=== PATIENT | female | born 2000 | race Caucasian/White ===

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

== ENCOUNTER 2022-02-12 11:59 | Emergency (ER) | payer OTHER ==
[~2022-02-12 11:59] MED LIST: ONDA4TAB11 PO
== END 2022-02-12 12:40 | disposition left against medical advice (07) ==
LOC: EDUNIT# 11:59 → ER 12:02
DX: R10.9 Unspecified abdominal pain (principal); R11.10 Vomiting, unspecified

== ENCOUNTER 2023-01-22 18:53 | Observation (INO) | payer OTHER ==
[~2023-01-22] VITALS: Ht 157.5 cm; Wt 42.7 kg
[2023-01-22 20:30] VITALS: BP 114/65
[2023-01-22] MEDS ORDERED: ONDANSETRON INJECTION 4 MG/2 ML (SDV) IVP PRN (20:30)
[2023-01-22] MEDS ORDERED: PROMETHAZINE INJ 25 MG/ML VIAL IVP PRN (20:30)
[2023-01-22] MEDS ORDERED: THIAMINE INJECTION 100 MG in NS (IVPB) 50 ML 50 ML IV ONE (21:15)
[2023-01-22 21:40] LABS: HEMATOCRIT 36 % (35-52); HEMOGLOBIN 12.3 g/dL (11.5-16.0); MEAN CORPUSCULAR HEMOGLOBIN 32 pg (25-34); MEAN CORPUSCULAR HGB CONC 35 g/dL (32-36); MEAN CORPUSCULAR VOLUME 92 fL (80-99); MEAN PLATELET VOLUME 8.9 fL (9.0-12.2); PLATELET COUNT 357 10^3/uL (130-400); WHITE BLOOD COUNT 16.2 10^3/uL (4.3-11.0)
[2023-01-22 22:02] LABS: ALBUMIN 4.4 GM/DL (3.2-4.5); CALCIUM 9.7 MG/DL (8.5-10.1); CREATININE SERUM 0.64 MG/DL (0.60-1.30); POTASSIUM 3.6 MMOL/L (3.6-5.0); TOTAL PROTEIN 6.9 GM/DL (6.4-8.2)
[2023-01-22] MEDS: D5 1/2NS + KCL 20 MEQ/L 1000ML 1,000 ML IV SCH (22:16)
[2023-01-22 22:22] LABS: TSH (THYROID ANALYZER) 0.9 UIU/ML (0.35-4.94)
[2023-01-22] MEDS ORDERED: LURA20TA PO (22:40)
[2023-01-22] MEDS ORDERED: SERT25TA PO (22:40)
[2023-01-22] MEDS ORDERED: PNV-9 PO (22:40)
[2023-01-23 00:58] VITALS: BP 99/54
[2023-01-23 04:23] VITALS: BP 109/60
[2023-01-23] MEDS: D5 1/2NS + KCL 20 MEQ/L 1000ML 1,000 ML IV SCH (04:23)
[2023-01-23 05:14] LABS: CLARITY,URINE SLIGHTLY CLOUDY; COLOR,URINE AMBER; GLUCOSE, URINE (UA) NEGATIVE (NEGATIVE); KETONES,URINE 3+ (NEGATIVE); PROTEIN,URINE 2+ (NEGATIVE)
[2023-01-23 05:15] LABS: BACTERIA,URINE LARGE /HPF; BILIRUBIN,URINE 1+ (NEGATIVE); LEUKOCYTE ESTERASE ,URINE NEGATIVE (NEGATIVE); NITRITE,URINE NEGATIVE (NEGATIVE); RBC,URINE 0-2 /HPF; WBC,URINE 0-2 /HPF
[2023-01-23 08:46] VITALS: BP 94/50
--- NOTE | 2023-01-23 10:38 | Short Stay Summary ---
HPI History of Present Illness: Keri Zambrano is a 22yo at 11wga by LMP and 1st trimesters US who was admitted for vomiting, inability to tolerate PO, and 4 pound weight loss. She reports 2 days of acute nausea, vomiting, and abdominal pain. No fevers. Had mild nausea prior, but not this bad. No known sick contacts, no different food or changes recently. No cramping, contractions, or vaginal bleeding. No diarrhea, dysuria, urgency or frequency. Blood work and urine testing negative for significant abnormality or infection. She received IV fluids and banana bag overnight and 1 dose of antiemetic with significant improvement of symptoms. She continued to improve and was able to tolerate oral food and fluids. She was discharged home with recommendation for bland diet, po zofran. Source: patient, RN notes reviewed Exam Limitations: no limitations Date seen by provider: Jan 23, 2023 Time Seen by Provider: 08:10 Attending Physician [place]/[facility] PCP Admitting Physician: Angelica Maravilla MD Attending Physician: Luz Maria Ward MD PCP: Liv Hartley MD Consult Date of Admission Jan 22, 2023 at 20:18 Home Medications Home Medications Reviewed patient Home Medication Reconciliation performed by pharmacy medication reconciliations pharmacy technician infusion and/or nursing. Patients Allergies have been reviewed. Allergies Coded Allergies: escitalopram (Verified Allergy, Unknown, 01/22/23) YEE-Jwxxzs-Njtkep Hx Patient Social History Smoking Status: Never a Smoker 2nd Hand Smoke Exposure: No Recent Hopitalizations: No Alcohol Use?: No Have you traveled recently?: No Immunizations Up To Date Influenza Vaccine Up-to-Date: No; Not Current Past Medical History None Family Medical History Significant Family History: No Pertinent Family Hx Review of Systems ([facility]) Constitutional: No chills; dizziness; No fever, No malaise; weight loss EENTM: no symptoms reported Respiratory: No cough, No short of breath, No wheezing Cardiovascular: No chest pain, No edema, No palpitations Gastrointestinal: abdominal pain (diffuse); No constipation, No diarrhea, No hematemesis; loss of appetite, nausea, vomiting Genitourinary: No discharge, No dysuria, No frequency : Yes (11wga) Musculoskeletal: no symptoms reported Skin: no symptoms reported Psychiatric/Neurological: Denies Anxiety, Denies Depressed; Headache; Denies Tremors, Denies Weakness Physical Exam-([facility]) Physical Exam Vital Signs VS - Last 72 Hours, by Label 01/22/23 01/23/23 01/23/23 01/23/23 20:30 00:58 04:23 08:46 Temp 37.2 36.7 36.6 37.1 Pulse 55 55 59 64 Resp 18 16 16 16 B/P (MAP) 114/65 99/54 (69) 109/60 (76) 94/50 (65) Pulse Ox 100 99 O2 Delivery Room Air Room Air Room Air Capillary Refill : Less Than 3 Seconds General Appearance: WD/WN, no apparent distress Eyes: Bilateral Eye Normal Inspection, Bilateral Eye PERRL, Bilateral Eye EOMI HEENT: pharynx normal Neck: non-tender, full range of motion, supple Respiratory: lungs clear, normal breath sounds, no respiratory distress, no accessory muscle use Cardiovascular: normal peripheral pulses, regular rate, rhythm, no edema, no murmur Gastrointestinal: normal bowel sounds, soft, no organomegaly, tenderness (mild, diffuse without rebound or guarding) Back: normal inspection, no CVA tenderness, no vertebral tenderness Extremities: normal range of motion, non-tender, no pedal edema, no calf tenderness, normal capillary refill 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 Continue home meds, add ondansetron 4mg ODT q8h prn nausea. Follow up with PCP in 1-2 weeks. Was the Problem List Reviewed?: Yes Assessment/Plan Assessment/Plan Admission Dx Hyperemesis Gravidarum Admission Status: Observation (1) Hyperemesis complicating , antepartum Status: Acute Assessment & Plan: Acute HG with dehydration and weight loss of 4 pounds. Workup including CBC, CMP and UA reassuring for no infectious process. Patient was given IV banana back and NS with significant improvement in symptoms, able to tolerate PO water and food. Will discharge home with prn zofran. Encouraged bland diet, advance as tolerated. Follow up with pcp in 1 week. (2) Dehydration during Status: Acute Assessment & Plan: Received 3L of IV fluids with improvement in nausea and urine output this morning. vital signs stable. Continue focus on oral rehydration. (3) Abdominal pain Status: Acute Assessment & Plan: Suspect muscle soreness due to vomiting x2 days, mild generalized pain. Continue to monitor. Qualifiers: Qualified Codes: R10.84 - Generalized abdominal pain LUZ MARIA WARD MD Jan 23, 2023 10:38
[2023-01-23] MEDS ORDERED: ONDA4TAB11 SL (10:55)
--- NOTE | 2023-01-23 10:57 | Discharge Summary ---
Discharge Inst-[facility] Reconcile Patient Problems Problems Reviewed?: Yes Depart Medications New, Converted or Re-Newed RX: Transmitted to Pharmacy Final Diagnosis Hyperemesis gravidarum with dehydration Follow Up/Instructions Goal/Follow Up: 1-2 weeks with PCP Patient Instructions: Advance diet slowly as tolerated, focus on oral rehydration Activity Activity: Activity as Tolerated Driving Instructions: You May Drive NO SMOKING: NO SMOKING Diet Discharge Diet: Eat Small Frequent Meals Return to The Hospital For: Inability to tolerate liquids. Symptoms to Report to : Appetite Changes, Fever Over 101 Degrees F, Pain/Pressure in Chest, Urination Difficulty, Cough Up/Vomit Blood, Nausea/Vomiting For Any Problems or Questions: Contact Your Physician, Go to Emergency Room ERIC WARD MD Jan 23, 2023 10:57
[2023-01-23 11:45] VITALS: BP 94/50
[2023-01-24] MEDS ORDERED: THIAMINE INJECTION 100 MG, FOLIC ACID INJECTION 1 MG, MULTIVITAMIN INJECTION 10 ML, MAG... IV SCH ×5 (09:00)
== END 2023-01-23 11:45 | disposition home or self-care (01) ==
LOC: WS 20:18 → UNDOADMOB 20:18 → LDRP 20:21 → WS 20:21 → LDRP 20:26 → UNDODISOB 01-23 11:45
PROVIDERS: ADMIT Family Medicine; ATTEND Family Medicine
DX: O21.1 Hyperemesis gravidarum with metabolic disturbance (principal); O26.891 Other specified pregnancy related conditions, first trimester; Z3A.11 11 weeks gestation of pregnancy
CPT/HCPCS: 80053; 81000; 84443; 85027; 87088; 96361 ×2; 96365; G0378; G0379; 36415

== ENCOUNTER 2023-02-06 14:46 | Emergency (ER) | payer OTHER ==
[~2023-02-06] VITALS: Ht 157 cm; Wt 44.4 kg
[~2023-02-06 14:46] MED LIST changes: +LURA20TA PO; +ONDA4TAB11 SL; +PNV-9 PO; +SERT25TA PO
[2023-02-06] MEDS ORDERED: NS IV 1000 ML 1,000 ML IV STA (15:21)
--- NOTE | 2023-02-06 15:27 | ED Abdominal Pain ---
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 PT REPORTS MILD LOWER ABDOMINAL PAIN WELL. Source of Information: Patient Exam Limitations: No Limitations History of Present Illness Date Seen by Provider: Feb 06, 2023 Time Seen by Provider: 15:23 Initial Comments Patient is a 22-year-old female who presents the ED with bright red blood stool. She states this happened just right before arrival. She is about 13 weeks . She has been experiencing mild lower abdominal cramping throughout her . She denies of any rectal pain, or anal pain. She did have 1 episode of diarrhea today. She states she was recently admitted for dehydration and vomiting. Currently following Dr. Lal. G1, P0. She denies any vaginal discharge or vaginal bleeding. She denies chest pain, shortness of breath, fever, sore throat, ear pain, pain with urination or frequent urination. Allergies and Home Medications Allergies Coded Allergies: escitalopram (Verified Allergy, Unknown, 01/22/23) Patient Home Medication List Home Medication List Reviewed: Yes Lurasidone HCl (Latuda) 20 Mg Tablet, 20 MG PO DAILY, (Reported) Entered as Reported by: Adriana Robles on 01/22/232239 Ondansetron (Ondansetron Odt) 4 Mg Tab.rapdis, 4 MG SL Q8H PRN for NAUS EA/VOMITING-1ST LINE Prescribed by: Luz Maria Leong on 01/23/23 1055 Pnv 119/Iron Fum/Folic Acid ( 19 Tablet) 29 Mg Iron-1 Mg Tablet, 1 EACH PO DAILY, (Reported) Entered as Reported by: Adriana Robles on 01/22/232239 Sertraline HCl (Zoloft) 25 Mg Tablet, 25 MG PO DAILY, (Reported) Entered as Reported by: Adriana Robles on 01/22/232239 Review of Systems Review of Systems Constitutional: No chills, No diaphoresis EENTM: No Double Vision, No Eye Pain Respiratory: Denies Cough Cardiovascular: Denies Chest Pain Gastrointestinal: Abdominal Pain, Blood Streaked Stools, Diarrhea; Denies Nausea, Denies Vomiting Genitourinary: Denies Burning, Denies Discharge, Denies Drainage, Denies Frequency Musculoskeletal: No back pain, No joint pain Skin: No change in color, No change in hair/nails All Other Systems Reviewed Negative Unless Noted: Yes Past Gcipffv-Adpggg-Ltzgtq Hx Patient Social History Tobacco Use?: No Substance use?: No Alcohol Use?: No Pt feels they are or have been: No Immunizations Up To Date PED Vaccines UTD: Yes Seasonal Allergies Seasonal Allergies: No Past Medical History Surgery/Hospitalization HX: GASTRITIS, PTSD, BPD Surgeries: Yes Gallbladder Respiratory: No Cardiac: No Neurological: No Genitourinary: No Gastrointestinal: Yes (IBS) Musculoskeletal: No Endocrine: No HEENT: No Cancer: No Psychosocial: Yes Anxiety, Depression Integumentary: No Blood Disorders: No Family Medical History No Pertinent Family Hx Physical Exam Vital Signs Vital Signs - First Documented 02/06/23 15:03 Temp 36.8 Pulse 95 Resp 18 B/P (MAP) 119/74 (89) Pulse Ox 98 Capillary Refill : Less Than 3 Seconds Height/Weight/BMI Height: '" Weight: lbs. oz. kg; 18.00 BMI Method: General Appearance: WD/WN, no apparent distress HEENT: PERRL/EOMI, normal ENT inspection, TMs normal, pharynx normal Neck: non-tender, full range of motion, supple Respiratory: chest non-tender, lungs clear, normal breath sounds, no respiratory distress, no accessory muscle use Cardiovascular: regular rate, rhythm, no edema, no JVD Gastrointestinal: normal bowel sounds, non tender, soft, no organomegaly Extremities: normal range of motion, non-tender, normal inspection, no pedal edema Back: normal inspection, no CVA tenderness, no vertebral tenderness Neurologic/Psychiatric: wall taper helper II-XII nml as tested, no motor/sensory deficits, alert, normal mood/affect, oriented x 3 Skin: normal color, warm/dry Progress/Results/Core Measures Results/Orders Lab Results Laboratory Tests Test 02/06/23 15:12 02/06/23 15:40 Range/Units Urine Color YELLOW Urine Clarity CLEAR Urine pH 6.0 5-9 Urine Specific Plover 1.010 L 1.016-1.022 Urine Protein NEGATIVE NEGATIVE Urine Glucose (UA) NEGATIVE NEGATIVE Urine Ketones NEGATIVE NEGATIVE Urine Nitrite NEGATIVE NEGATIVE Urine Bilirubin NEGATIVE NEGATIVE Urine Urobilinogen 0.2 < = 1.0 MG/DL Urine Leukocyte Esterase NEGATIVE NEGATIVE Urine RBC (Auto) NEGATIVE NEGATIVE Urine RBC NONE /HPF Urine WBC NONE /HPF Urine Squamous Epithelial Cells RARE /HPF Urine Crystals NONE /LPF Urine Bacteria FEW H /HPF Urine Casts NONE /LPF Urine Mucus NEGATIVE /LPF Urine Culture Indicated NO White Blood Count 13.1 H 4.3-11.0 10^3/uL Red Blood Count 3.44 L 3.80-5.11 10^6/uL Hemoglobin 11.2 L 11.5-16.0 g/dL Hematocrit 33 L 35-52 % Mean Corpuscular Volume 95 80-99 fL Mean Corpuscular Hemoglobin 33 25-34 pg Mean Corpuscular Hemoglobin Concent 34 32-36 g/dL Red Cell Distribution Width 13.5 10.0-14.5 % Platelet Count 267 130-400 10^3/uL Mean Platelet Volume 8.4 L 9.0-12.2 fL Immature Granulocyte % (Auto) 0 % Neutrophils (%) (Auto) 76 H 42-75 % Lymphocytes (%) (Auto) 18 12-44 % Monocytes (%) (Auto) 5 0-12 % Eosinophils (%) (Auto) 0 0-10 % Basophils (%) (Auto) 0 0-10 % Neutrophils # (Auto) 10.0 H 1.8-7.8 X 10^3 Lymphocytes # (Auto) 2.4 1.0-4.0 X 10^3 Monocytes # (Auto) 0.7 0.0-1.0 X 10^3 Eosinophils # (Auto) 0.0 0.0-0.3 10^3/uL Basophils # (Auto) 0.0 0.0-0.1 10^3/uL Immature Granulocyte # (Auto) 0.1 0.0-0.1 10^3/uL Sodium Level 138 135-145 MMOL/L Potassium Level 3.6 3.6-5.0 MMOL/L Chloride Level 107 98-107 MMOL/L Carbon Dioxide Level 23 21-32 MMOL/L Anion Gap 8 5-14 MMOL/L Blood Urea Nitrogen 4 L 7-18 MG/DL Creatinine 0.57 L 0.60-1.30 MG/DL Estimat Glomerular Filtration Rate 133 BUN/Creatinine Ratio 7 Glucose Level 78 70-105 MG/DL Calcium Level 9.3 8.5-10.1 MG/DL Corrected Calcium 9.3 8.5-10.1 MG/DL Total Bilirubin 0.3 0.1-1.0 MG/DL Aspartate Amino Transf (AST/SGOT) 13 5-34 U/L Alanine Aminotransferase (ALT/SGPT) 6 0-55 U/L Alkaline Phosphatase 38 L 40-136 U/L Total Protein 6.4 6.4-8.2 GM/DL Albumin 4.0 3.2-4.5 GM/DL Lipase 29 8-78 U/L Beta-Hydroxybutyrate (Chem panel) 0.11 0.00-0.27 MMOL/L Human Chorionic Gonadotropin, Quant [id number] H <5 MIU/ML My Orders Orders - JUVENTINO VARGAS Ua Culture If Indicated (02/06/23 14:48) Cbc And Automated Diff (02/06/23 15:21) Comprehensive Metabolic Panel (02/06/23 15:21) Lipase (02/06/23 15:21) Beta Hydroxybutyrate (02/06/23 15:21) Ns Iv 1000 Ml (Ns Iv 1000 Ml) (02/06/23 15:21) Abo Rh Type (02/06/23 15:21) Wet Prep (02/06/23 15:46) Us Ob Single Fetus<14 [id number] (02/06/23 15:43) Hcg,Quantitative (02/06/23 16:25) Vital Signs/I&O 02/06/23 02/06/23 15:03 17:15 Temp 36.8 Pulse 95 85 Resp 18 16 B/P (MAP) 119/74 (89) 114/83 Pulse Ox 98 98 Blood Pressure Mean: 89 Departure Communication (PCP) 22-year-old female G1, P0 at 13 weeks presents ED with rectal bleeding. one epsidoe right before arrival. Some mild lower abdominal cramping but she has been experiencing cramping throughout her . No current vomiting fever chills chest pain,pain with urination, vaginal bleeding, frequent urination. CBC, CMP, urinalysis, pelvic ultrasound ,pelvic exam was ordered. She refused pelvic exam since we did not have any female provider. She denies of any anal pain. No history of hemorrhoids. I suspect that this is rectal bleeding however exam would further evaluate. She once again refused. CBC showed a white blood count of 13, hemoglobin 11.2. Chemistry grossly unremarkable. Beta quant 65,000. Urinalysis negative for hematuria or infection. Patient is O+. Patient Was given a liter of fluid. Pelvic ultrasound did show intrauterine 13 weeks 167 bpm. No current abnormality. She had no episode of rectal bleeding during her stay. I suspect she probably does have a hemorrhoid that may be a result of the bleeding. she states she has had normal bowel movements. She needs further exam. At this time recommend laxatives, clear liquids.. Recommend following up with Dr. 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 If increasing pain, worsening bloody stools return back to ED. Vital signs stable. Impression Primary Impression: Rectal bleeding Disposition: HOME, SELF-CARE Condition: Stable Departure-Patient Inst. Decision time for Depature: 17:04 Referrals: LUPE LAL MD (PCP/Family) Primary Care Physician Patient Instructions: Bloody Stools, Adult (DC) Add. Discharge Instructions: Continue monitoring your symptoms. If any increasing bleeding need to return back to ED or call your provider for evaluation. All discharge instructions reviewed with patient and/or family. Voiced understanding. JUVENTINO VARGAS Feb 06, 2023 15:27
[2023-02-06 15:50] LABS: CLARITY,URINE CLEAR; COLOR,URINE YELLOW
[2023-02-06 15:51] LABS: BACTERIA,URINE FEW /HPF; BILIRUBIN,URINE NEGATIVE (NEGATIVE); GLUCOSE, URINE (UA) NEGATIVE (NEGATIVE); KETONES,URINE NEGATIVE (NEGATIVE); LEUKOCYTE ESTERASE ,URINE NEGATIVE (NEGATIVE); NITRITE,URINE NEGATIVE (NEGATIVE); PROTEIN,URINE NEGATIVE (NEGATIVE); SQUAMOUS EPITHELIAL CELL,UR RARE /HPF
[2023-02-06 15:56] LABS: BASOPHILS % (AUTO) 0 % (0-10); EOSINOPHILS % (AUTO) 0 % (0-10); HEMATOCRIT 33 % (35-52); HEMOGLOBIN 11.2 g/dL (11.5-16.0); LYMPHOCYTES # (AUTO) 2.4 X 10^3 (1.0-4.0); LYMPHOCYTES % (AUTO) 18 % (12-44); MEAN CORPUSCULAR HEMOGLOBIN 33 pg (25-34); MEAN CORPUSCULAR HGB CONC 34 g/dL (32-36); MEAN CORPUSCULAR VOLUME 95 fL (80-99); MEAN PLATELET VOLUME 8.4 fL (9.0-12.2); MONOCYTES # (AUTO) 0.7 X 10^3 (0.0-1.0); MONOCYTES % (AUTO) 5 % (0-12); NEUTROPHILS % (AUTO) 76 % (42-75); PLATELET COUNT 267 10^3/uL (130-400); WHITE BLOOD COUNT 13.1 10^3/uL (4.3-11.0)
[2023-02-06 16:13] LABS: POTASSIUM 3.6 MMOL/L (3.6-5.0)
[2023-02-06 16:14] LABS: CALCIUM 9.3 MG/DL (8.5-10.1)
[2023-02-06 16:15] LABS: TOTAL PROTEIN 6.4 GM/DL (6.4-8.2)
[2023-02-06 16:17] LABS: BILIRUBIN,TOTAL 0.3 MG/DL (0.1-1.0)
[2023-02-06 16:19] LABS: CREATININE SERUM 0.57 MG/DL (0.60-1.30)
--- NOTE | 2023-02-06 16:58 | Diagnostic Imaging Report ---
PROCEDURE: US OB SINGLE FETUS <14 WKS. TECHNIQUE: Multiple real-time grayscale images were obtained over the gravid uterus in various projections. INDICATION: Abdominal pain during FINDINGS: There is babin intrauterine gestation with heart rate of 167 BPM. The placenta is posterior without evidence of previa. Evan-rump length is 6.9 cm, indicating gestational age of 13 weeks and 1 day. There is normal amount of amniotic fluid and cervical length is 4.3 cm. No maternal adnexal region abnormality is seen. IMPRESSION: Unremarkable intrauterine gestation with estimated age of 13 weeks and 1 day. Sonographic EDC is 08/08/2023. Dictated by: Dictated on workstation # [id number]
[2023-02-06 17:15] VITALS: BP 114/83
== END 2023-02-06 17:15 | disposition home or self-care (01) ==
LOC: EDUNIT# 14:46 → ER 14:49
DX: O20.8 Other hemorrhage in early pregnancy (principal); Z87.19 Personal history of other diseases of the digestive system; Z3A.13 13 weeks gestation of pregnancy
CPT/HCPCS: 36415; 76801; 80053; 81000; 82010; 83690; 84702; 85025; 86900; 86901